=== PATIENT | male | born 1970 | race Caucasian/White ===

== ENCOUNTER 2021-06-08 03:04 | Emergency (ER) | payer SELFPAY ==
[~2021-06-08] VITALS: Ht 167.6 cm; Wt 68.0 kg
[2021-06-08 03:07] VITALS: BP 118/76
[2021-06-08] MEDS ORDERED: ACETAMINOPHEN 325MG TABLET PO ONE (04:00)
[2021-06-08] MEDS ORDERED: HYDR-4001 MT (05:05)
[2021-06-08] MEDS ORDERED: LIDO700A15 TP (05:05)
== END 2021-06-08 05:22 | disposition home or self-care (01) ==
LOC: ER 03:22
DX: S22.42XA Multiple fractures of ribs, left side, initial encounter for closed fracture (principal); X58.XXXA Exposure to other specified factors, initial encounter; Y93.89 Activity, other specified; Y92.89 Other specified places as the place of occurrence of the external cause
CPT/HCPCS: 71101; 93005; 99283